=== PATIENT | female | born 1975 | race Caucasian/White ===

== ENCOUNTER → 2019-06-24 09:41 | Outpatient (CLI) | payer OTHER, SELFPAY ==
[2019-06-24 10:02] LABS: Add Manual Diff / Slide Review NO; Basophils Absolute Auto 0 /uL (0-100); Basophils Percent Auto 0.5 % (0-2); Eosinophils Absolute Auto 200 /uL (0-450); Eosinophils Percent Auto 3.2 % (2-4); Hematocrit 39.3 % (36-46); Lymphocytes Absolute Auto 1300 /uL (1100-4500); Lymphocytes Percent Auto 18.7 % (25-40); Mean Corpuscular HGB Conc 33.2 % (30-36); Mean Corpuscular Hemoglobin 29.7 PG (26-34); Mean Corpuscular Volume 89.6 fL (80-100); Monocytes Absolute Auto 500 /uL (0-900); Monocytes Percent Auto 8.2 % (3-14); Neutrophils Absolute Auto 4700 /uL (1500-7000); Neutrophils Percent Auto 69.4 % (50-75); Platelet Count 235 X10^3/uL (150-400); Red Blood Cell Count 4.38 X10^6/uL (4.0-5.2); Red Cell Distribution Width 13.1 % (11.6-14.8); White Blood Cell Count 6.7 X10^3/uL (4.5-11.0)
[2019-06-24 10:17] LABS: Alanine Aminotransferase 26 IU/L (<35); Albumin 4.2 g/dL (3.5-5.0); Albumin Globulin Ratio 1.3 (1.0-2.8); Alkaline Phosphatase 96 U/L (38-126); Aspartate Aminotransferase 21 IU/L (14-36); BUN Creatinine Ratio 13.3 (6-22); Bilirubin Total 1.2 mg/dL (0.2-1.3); Blood Urea Nitrogen 8 mg/dL (7-17); Calcium 9.3 mg/dL (8.4-10.2); Carbon Dioxide 26 mmol/L (22-32); Chloride 104 mmol/L (98-107); Cholesterol 154 mg/dL (140-199); Estimated Glomerular Filt Rate > 60.0 mL/min (>60); Globulin 3.2 g/dL (1.7-4.1); Glucose 108 mg/dL (70-100); HDL Cholesterol 45 mg/dL (40-60); HEMOLYSIS < 15 (0-50); LDL Cholesterol Calculated 96 mg/dL (<100); Potassium 4.1 mmol/L (3.4-5.1); Sodium 141 mmol/L (137-145); Total Protein 7.4 g/dL (6.3-8.2); Triglycerides 63 mg/dL (35-150)
[2019-06-24 10:46] LABS: Free T3, Triiodothyronine Free 3.65 pg/mL (2.77-5.27); Free T4, Direct Thyroxine 1.16 ng/dL (0.78-2.19)
[2019-06-24 11:00] LABS: Thyroid Stimulating Hormone 1.22 uIU/mL (0.47-4.68)
== END ==
PROVIDERS: PCP Family Medicine; Referring Provider Family Medicine; Visit Provider Family Medicine
DX: E66.9 Obesity, unspecified (principal); R53.83 Other fatigue; Z83.3 Family history of diabetes mellitus
CPT/HCPCS: 36415; 80053; 80061; 84439; 84443; 84481; 85025

== ENCOUNTER → 2020-03-21 | Outpatient (CLI) | payer OTHER, SELFPAY | PROVIDERS: PCP Social Worker Clinical; Referring Provider Internal Medicine; Visit Provider Internal Medicine | DX: Z23 Encounter for immunization (principal) | CPT/HCPCS: 90471; 90686 ==

== ENCOUNTER → 2020-05-15 09:33 | Outpatient (CLI) | payer OTHER, SELFPAY ==
[2020-05-15] MEDS: COVID-19 VACC(MODERNA-1)/PF 100 MCG/0.5 ML VIAL IM (09:36)
== END ==
PROVIDERS: PCP Social Worker Clinical; Visit Provider Internal Medicine
DX: Z23 Encounter for immunization (principal)
CPT/HCPCS: 0011A; 91301

== ENCOUNTER → 2020-06-14 09:17 | Outpatient (CLI) | payer OTHER, SELFPAY ==
[2020-06-14] MEDS: COVID-19 VACC #2, MRNA(MOD) 100 MCG/0.5 ML VIAL IM (09:22)
== END ==
PROVIDERS: Visit Provider Internal Medicine
DX: Z23 Encounter for immunization (principal)
CPT/HCPCS: 0012A; 91301

== ENCOUNTER → 2021-03-21 10:03 | Outpatient (CLI) | payer OTHER, SELFPAY ==
[2021-03-21 10:42] LABS: Add Manual Diff / Slide Review NO; Basophils Absolute Auto 0 /uL (0-100); Basophils Percent Auto 0.7 % (0-2); Eosinophils Absolute Auto 200 /uL (0-450); Eosinophils Percent Auto 2.3 % (2-4); Lymphocytes Absolute Auto 2200 /uL (1100-4500); Lymphocytes Percent Auto 30.9 % (25-40); Mean Corpuscular HGB Conc 33.3 % (30-36); Mean Corpuscular Hemoglobin 29.1 PG (26-34); Mean Corpuscular Volume 87.4 fL (80-100); Monocytes Absolute Auto 400 /uL (0-900); Neutrophils Absolute Auto 4400 /uL (1500-7000); Neutrophils Percent Auto 60.1 % (50-75); Platelet Count 301 X10^3/uL (150-400); Red Blood Cell Count 4.47 X10^6/uL (4.0-5.2); Red Cell Distribution Width 13.6 % (11.6-14.8); White Blood Cell Count 7.2 X10^3/uL (4.5-11.0)
[2021-03-21 12:10] LABS: Alanine Aminotransferase 46 IU/L (<35); Albumin 4.4 g/dL (3.5-5.0); Albumin Globulin Ratio 1.5 (1.0-2.8); Alkaline Phosphatase 98 U/L (38-126); Aspartate Aminotransferase 30 IU/L (14-36); BUN Creatinine Ratio 19.7 (6-22); Blood Urea Nitrogen 13 mg/dL (7-17); Calcium 9.5 mg/dL (8.4-10.2); Carbon Dioxide 27 mmol/L (22-32); Chloride 103 mmol/L (98-107); Cholesterol 189 mg/dL (140-199); Estimated Glomerular Filt Rate > 60.0 mL/min (>60); Glucose 96 mg/dL (70-100); HDL Cholesterol 57 mg/dL (40-60); HEMOLYSIS < 15 (0-50); LDL Cholesterol Calculated 118 mg/dL (<100); Potassium 4.7 mmol/L (3.4-5.1); Sodium 138 mmol/L (137-145); Total Protein 7.4 g/dL (6.3-8.2); Triglycerides 68 mg/dL (35-150)
== END ==
PROVIDERS: PCP Family Medicine; Referring Provider Family Medicine; Visit Provider Family Medicine
DX: R73.03 Prediabetes (principal); D64.9 Anemia, unspecified; E66.9 Obesity, unspecified; L65.9 Nonscarring hair loss, unspecified
CPT/HCPCS: 36415; 80053; 80061; 84443; 85025

== ENCOUNTER → 2021-04-24 15:06 | Outpatient (CLI) | payer OTHER, SELFPAY ==
[2021-04-24 15:53] LABS: COVID19 -Nasal RAPID Negative (Negative)
== END ==
PROVIDERS: PCP Family Medicine; Referring Provider Internal Medicine; Visit Provider Internal Medicine
DX: Z20.822 Contact with and (suspected) exposure to COVID-19 (principal)
CPT/HCPCS: 87635; C9803

== ENCOUNTER → 2021-04-25 06:44 | Outpatient (CLI) | payer OTHER, SELFPAY ==
--- NOTE | 2021-04-30 10:07 | PM.PFT.1 ---
Pulmonary Function Test Referral & Results Date Patient Seen: 04/25/21 Requesting provider: Sara Stanley Results: The spirometry demonstrates an FVC of 3.16 L which is 93% of predicted. The FEV1 was measured at 2.59 L which is 95% of predicted. The FEV1/FVC ratio was 82 which is 101% of predicted. Following the administration of bronchodilator there was a 10% improvement in FEV1 and a 27% improvement in FEF 25-75% Lung volumes show an SVC of 3.39 L which is 107% of predicted. The diffusing capacity was measured at 25.31 which is 117% of predicted. The maximum voluntary ventilation was minimally reduced Interpretation: This study demonstrates normal spirometry and diffusing capacity There may be a minimal reduction in maximum voluntary ventilation which in the absence of any abnormalities of spirometry might suggest the presence of neuromuscular disease Clinical correlation suggested
== END ==
PROVIDERS: PCP Family Medicine; Referring Provider Family Medicine; Visit Provider Family Medicine
DX: J45.20 Mild intermittent asthma, uncomplicated (principal)
CPT/HCPCS: 94060; 94726; 94729

== ENCOUNTER → 2021-07-02 13:52 | Outpatient (CLI) | payer OTHER, SELFPAY | PROVIDERS: PCP Family Medicine; Visit Provider Physician Assistant | DX: R30.0 Dysuria (principal) | CPT/HCPCS: 87077; 87086; 87186 ==

== ENCOUNTER → 2021-07-10 08:11 | Outpatient (CLI) | payer OTHER, SELFPAY | PROVIDERS: PCP Family Medicine; Visit Provider Physician Assistant | DX: R30.0 Dysuria (principal) | CPT/HCPCS: 87077; 87086; 87186 ==

== ENCOUNTER → 2021-10-22 08:59 | Outpatient (CLI) | payer OTHER, SELFPAY ==
[2021-10-22 11:07] LABS: COVID19 -Nasal RAPID Negative (Negative)
== END ==
PROVIDERS: PCP Pediatrics; Visit Provider Surgery
DX: Z20.822 Contact with and (suspected) exposure to COVID-19 (principal); Z01.812 Encounter for preprocedural laboratory examination
CPT/HCPCS: 87635; C9803

== ENCOUNTER 2021-10-23 13:23 | Day surgery (SDC) | payer OTHER, SELFPAY ==
--- NOTE | 2021-10-23 | PATH_ITS ---
[facility] Accession Number: [id number] . 01 Material submitted: . PART A: duodenum - DUODENUM PART B: stomach - ANTRUM PART C: colon - DESCENDING POLYP PART D: rectum - RECTAL POLYP . 01 Clinical history: . SDC HEMORRHAGE OF ANUS AND RECTUM GASTRO-ESOPHAGEAL REFLUX DISEASE WITH ESOPHAGITIS . 01 Diagnosis: A. Duodenum, Biopsy: Duodenal mucosa with no diagnostic abnormality. Negative for active inflammation, features of sprue, dysplasia, or malignancy. . B. Antrum, Biopsy: Gastric antral mucosa with mild chronic inflammation. Negative for Helicobacter organisms by immunohistochemistry. Negative for intestinal metaplasia. Negative for dysplasia or malignancy. . C. Descending Colon, Polyp, Biopsy: Tubular adenoma. . D. Rectal Polyp, Biopsy: Hyperplastic polyp. [facility] 10/29/2021 1246 Local . 01 Electronically signed: . Jesus Roque MD, PhD, Pathologist NPI- [id number] . 01 Gross description: . Part A: DUODENUM: Received in formalin are 2 fragment(s) of tello, soft tissue measuring 0.3 x 0.3 x 0.2 cm to 0.3 x 0.3 x 0.3 cm submitted entirely in 1 cassette(s) Part B: ANTRUM: Received in formalin are 3 fragment(s) of tello, soft tissue measuring 0.1 x 0.1 x 0.1 cm to 0.4 x 0.1 x 0.1 cm submitted entirely in 1 cassette(s) Part C: DESCENDING POLYP: Received in formalin is 1 fragment(s) of telol, soft tissue measuring 0.3 x 0.2 x 0.2 cm submitted entirely in 1 cassette(s) Part D: RECTAL POLYP: Received in formalin is 1 fragment(s) of tello, soft tissue measuring 0.3 x 0.3 x 0.3 cm submitted entirely in 1 cassette(s) /[facility]JI 10/24/[id number] Local . 01 Microscopic: . B. An immunohistochemical stain was performed to evaluate for Helicobacter organisms and is negative. The control stain showed appropriate reactivity. . * This test was developed and its performance characteristics determined by [facility]. It has not been cleared or approved by the U.S. Food and Drug Administration. The FDA has determined that such clearance or approval is not necessary. This test is used for clinical purposes. It should not be regarded as investigational or for research. . 01 Pathologist provided ICD-10: K29.70, D12.4, K62.1 . 01 CPT . 381642, 923529, 199196, 661450, B30181 Specimen Comment: A courtesy copy of this report has been sent to [phone] Performed at: 01 [facility] [address] [place] [address] [address] [facility] [place], [place], [place] [id number] MD Jama Rodríguez MD Phone: [phone]
[2021-10-23 13:55] VITALS: BMI 47.1
[2021-10-23 14:05] VITALS: BP 139/86; PULSE 74; RESP 20; TEMP 36.2; O2SAT 100
[2021-10-23] MEDS: LACTATED RINGERS 1,000 ML 42 ML IV (14:21)
--- NOTE | 2021-10-23 15:02 | PM.HP.1 ---
History of Present Illness History of Present Illness Date Patient Seen: 10/23/21 Time Patient Seen: 15:02 Chief complaint: SDC Narrative: 46-year-old woman who is suffering from multiple chronic GI complaints. See the office visit note from September for details. Patient History Medical History (Updated 10/23/21 @ 07:33 by Benigno Buitrago MD) Acute cholecystitis Anemia Asthma (~1989) Biliary colic Chicken pox (~1982) Choledocholithiasis Cholelithiasis Cold sore Eczema (~1981) Family history of diabetes mellitus Fractures (~2012) Hemorrhoids Prediabetes Recurrent sinusitis (~1988) Seasonal allergies (~1976) Well woman exam Surgical History Anesthesia History of ERCP (~2015) History of removal of skin mole (~10/1983) History of third molar tooth extraction (~08/1991) S/P left knee arthroscopy (~2014) Status post laparoscopic cholecystectomy (~11/2015) Status post tubal ligation (07/17/16) Family & Social History Family History Grandfather Cancer Diabetes mellitus Leukemia Grandmother Heart disease Stroke Grandfather Heart disease Hypertension Grandmother Hypertension Dementia Father Hypertension Mother Diabetes mellitus Hypertension Social History: household members spouse,children Tobacco & Substance use: Smoking Status Never smoker alcohol intake current alcohol intake frequency holiday/special occasion Substance Use Type does not use Meds Home Medications and Allergies Home Medications Medication Instructions Recorded Confirmed Type cetirizine 5 mg-pseudoephedrine ER 1 tab PO Q12H 04/15/18 10/23/21 History 120 mg tablet,extended release,12hr (Zyrtec-D) albuterol sulfate 90 mcg/actuation 2 puff inhalation Q4HP PRN 08/21/19 10/23/21 Rx aerosol inhaler (Ventolin HFA) shortness of breath or wheezing #2 ea methylphenidate HCl 20 mg tablet 60 mg PO DAILY #90 tabs 07/02/21 10/23/21 Rx Amberen PO 10/21/21 History multivitamin 5 ml PO DAILY 10/21/21 10/23/21 History valacyclovir 1 gram tablet 1,000 mg PO DAILY PRN Cold Sores 10/23/21 10/23/21 History (Valtrex) Allergies Allergy/AdvReac Type Severity Reaction Status Date / Time Sulfa (Sulfonamide AdvReac Mild MIGRAINES Verified 10/23/21 14:32 Antibiotics) Exam Vital Signs (past 8 hours): - 10/23/21 14:05 10/23/21 14:06 Temperature 97.2 F L Pulse Rate 74 Respiratory Rate 20 Blood Pressure 139/86 Pulse Oximetry 100 Oxygen Delivery Method Room Air Room Air Oxygen Delivery Method Room Air Const General: No acute distress Resp Effort & Inspection: normal respiratory effort GI Palpation: soft Assessment & Plan Assessment and plan (1) Rectal bleeding: Status: Acute Plan We will proceed with upper and lower endoscopy. She understands the risks and would like to proceed. COVID-19 COVID-19 status: Negative Result date/Date tested (Pos, Neg/Pending): 10/22/21 Time Spent With Patient Critical Care time: I spent a total of [] minutes of critical care time on this patient's care today; this time is exclusive of procedural time.
[2021-10-23] MEDS: LIDOCAINE 4% SOLN 50 ML 20 ML TOP (15:09)
[2021-10-23] MEDS: fentaNYL 250 MCG/5 ML INJ IV (15:30)
[2021-10-23] MEDS: MIDAZOLAM 5 MG/5 ML VIAL 13 MG IV (15:30)
--- NOTE | 2021-10-23 15:44 | PM.OP.EC ---
Operative Date/Time/Diagnoses Date of procedure: 10/23/21 Time of procedure: 15:44 Pre-op diagnosis: Rectal bleeding Post-op diagnosis: same Procedure & Clinicians Study performed: EGD and colonoscopy Same procedure as scheduled: Yes Surgeon: Benigno Cordero Procedure Notes Procedure in detail: Surgeon: Benigno Cordero MD Procedure in detail: A timeout was performed. A bite blocked was placed and monitors were attached to the patient. The patient was positioned in a left lateral decubitus position. Sedation was administered with Versed and fentanyl. Once the patient was sedated the endoscope was inserted through the bite block and passed through the esophagus and stomach and into the duodenum. No abnormalities were noted. Random biopsies were taken from the duodenum and antrum. The endoscope was retroflexed and no abnormalities were seen. The endoscope was straightned and withdrawn into the esophagus. No abnormalities were seen. Findings: Normal upper scope Next we repositioned the patient for a colonoscopy. A digital rectal exam was performed and no abnormality was noted. The colonoscope was inserted and advanced to the cecum. The appendiceal orifice was identified and photographed. The scope was slowly withdrawn over greater than 6 minutes. There was a small 5 mm polyp in the descending colon and a small 5 mm polyp rectum removed with cold forceps. The scope was retroflexed in the rectum and mild internal hemorrhoids were noted. The scope was straightened and withdrawn. Findings: 5 mm polyp in the descending colon and follow up mm polyp rectum EBL: 5 mL Scope withdrawal time: 9 Sedation minutes: 30 Post-procedure Recommendations: Will call with biopsy results Disposition: PACU
[2021-10-23 15:46] VITALS: BP 130/76; PULSE 84; RESP 13; TEMP 36.3; O2SAT 100
[2021-10-23 15:51] VITALS: BP 133/92; PULSE 81; RESP 14; TEMP 36.7; O2SAT 100
[2021-10-23 15:57] VITALS: BP 130/83; PULSE 75; RESP 15; TEMP 36.7; O2SAT 100
[2021-10-23 16:01] VITALS: BP 130/76; PULSE 83; RESP 17; TEMP 36.7; O2SAT 100
== END 2021-10-23 16:11 | disposition home or self-care (01) ==
PROVIDERS: PCP Pediatrics; Referring Provider Surgery; Visit Provider Surgery
PROC: 0DJD8ZZ Inspection of Lower Intestinal Tract, Via Natural or Artificial Opening Endoscopic (ICD-10-PCS; CPT 45378; principal; 2021-10-23 14:30)
PROC: 0DJ08ZZ Inspection of Upper Intestinal Tract, Via Natural or Artificial Opening Endoscopic (ICD-10-PCS; CPT 43235; 2021-10-23 14:30)
DX: D12.4 Benign neoplasm of descending colon (principal); K62.5 Hemorrhage of anus and rectum; K62.1 Rectal polyp; K29.50 Unspecified chronic gastritis without bleeding
CPT/HCPCS: 45380; 43239; 99152; 99153; J2250; J3010

== ENCOUNTER → 2023-05-19 07:37 | Outpatient (CLI) | payer OTHER, SELFPAY ==
[2023-05-19 08:28] LABS: Alanine Aminotransferase 53 IU/L (<35); Albumin 4.3 g/dL (3.5-5.0); Albumin Globulin Ratio 1.2 (1.0-2.8); Alkaline Phosphatase 111 U/L (38-126); Aspartate Aminotransferase 35 IU/L (14-36); BUN Creatinine Ratio 23.9 (6-22); Bilirubin Total 1.1 mg/dL (0.2-1.3); Blood Urea Nitrogen 16 mg/dL (7-17); Calcium 9.3 mg/dL (8.4-10.2); Carbon Dioxide 24 mmol/L (22-32); Chloride 105 mmol/L (98-107); Cholesterol 179 mg/dL (140-199); Estimated Glomerular Filt Rate > 60 mL/min (>60); Globulin 3.5 g/dL (1.7-4.1); Glucose 111 mg/dL (70-100); HDL Cholesterol 50 mg/dL (40-60); HEMOLYSIS < 15 (0-50); LDL Cholesterol Calculated 115 mg/dL (<100); Potassium 4.2 mmol/L (3.4-5.1); Sodium 140 mmol/L (137-145); Total Protein 7.8 g/dL (6.3-8.2); Triglycerides 69 mg/dL (35-150)
[2023-05-19 08:31] LABS: High Sensitivity CRP - Cardiac 10.7 mg/L (1.0-3.0)
[2023-05-19 08:47] LABS: Vitamin D 25 Hydroxy (D3) 27.2 ng/mL (30.0-100.0)
[2023-05-19 08:56] LABS: Thyroid Stimulating Hormone 1.83 uIU/mL (0.47-4.68)
[2023-05-23 17:17] LABS: Percent Free Testosterone 1.86 % (0.50-2.80); Testosterone Free 1.08 ng/dL (0.10-0.85); Testosterone Total 58.1 ng/dL (.)
[2023-05-26 05:52] LABS: Estradiol 30.3 pg/mL (.); Estriol,Serum <0.1 ng/mL (.); Estrone,Serum 63 pg/mL (.)
== END ==
PROVIDERS: PCP Family Medicine; Referring Provider Family Medicine; Visit Provider Family Medicine
DX: N95.1 Menopausal and female climacteric states (principal); R73.03 Prediabetes; R53.83 Other fatigue; Z68.41 Body mass index [BMI] 40.0-44.9, adult; Z83.2 Family history of diseases of the blood and blood-forming organs and certain disorders involving the immune mechanism; E78.5 Hyperlipidemia, unspecified; D64.9 Anemia, unspecified; E55.9 Vitamin D deficiency, unspecified
CPT/HCPCS: 36415; 80053; 80061; 82306; 82670; 82677; 82679; 84402; 84403; 84443; 86140

== ENCOUNTER → 2023-12-17 07:40 | Outpatient (CLI) | payer OTHER, SELFPAY ==
[2023-12-17 08:37] LABS: High Sensitivity CRP - Cardiac 8.9 mg/L (1.0-3.0)
[2023-12-17 08:55] LABS: Vitamin D 25 Hydroxy (D3) 73.3 ng/mL (30.0-100.0)
[2023-12-21 10:09] LABS: Testosterone Free 0.45 ng/dL (0.10-0.85); Testosterone Total 24.8 ng/dL (.)
[2023-12-23 13:36] LABS: Estradiol 32.7 pg/mL (.); Estriol,Serum <0.1 ng/mL (.); Estrone,Serum 104 pg/mL (.)
== END ==
PROVIDERS: PCP Family Medicine; Referring Provider Family Medicine; Visit Provider Family Medicine
DX: N95.1 Menopausal and female climacteric states (principal); E56.9 Vitamin deficiency, unspecified; Z79.890 Hormone replacement therapy
CPT/HCPCS: 36415; 82306; 82670; 82677; 82679; 84402; 84403; 86140

== ENCOUNTER → 2024-02-18 15:24 | Outpatient (CLI) | payer OTHER, SELFPAY | PROVIDERS: PCP Family Medicine; Visit Provider Registered Nurse | DX: R30.0 Dysuria (principal) | CPT/HCPCS: 87077; 87086; 87186 ==

== ENCOUNTER → 2024-05-26 07:03 | Outpatient (CLI) | payer OTHER, SELFPAY ==
[2024-05-26 08:07] LABS: Cholesterol 166 mg/dL (140-199); HDL Cholesterol 51 mg/dL (40-60); LDL Cholesterol Calculated 100 mg/dL (<100); Triglycerides 76 mg/dL (35-150)
[2024-05-26 10:31] LABS: Vitamin D 25 Hydroxy (D3) 73.5 ng/mL (30.0-100.0)
== END ==
PROVIDERS: PCP Family Medicine; Referring Provider Family Medicine; Visit Provider Family Medicine
DX: Z51.81 Encounter for therapeutic drug level monitoring (principal); Z79.890 Hormone replacement therapy
CPT/HCPCS: 36415; 80061; 82306; 82627; 82670; 84402; 84403

== ENCOUNTER → 2025-05-02 07:58 | Outpatient (CLI) | payer OTHER, SELFPAY ==
--- NOTE | 2025-05-02 07:59 | DI.MG.S_ITS ---
MM screening mammo BI: 05/02/2025. BI-RADS: 1 CLINICAL: 49-year old female for bilateral screening mammogram. Tyrer-Cuzick lifetime risk of 9.4%. No personal or first-degree family history of breast cancer. PRIOR EXAMS: None. This is a baseline mammogram. MAMMOGRAPHY TECHNIQUE: 2D and 3D (tomosynthesis) digital mammographic views obtained, with additional images as needed for full coverage. Current study was also evaluated with a Computer Aided Detection (CAD) system. DENSITY B. There are scattered areas of fibroglandular density. MAMMOGRAPHY FINDINGS Bilateral: No suspicious mass, asymmetry, microcalcification, or other abnormality seen. IMPRESSION: * No evidence of malignancy. RECOMMENDATIONS Bilateral * Annual screening mammography. OVERALL ASSESSMENT CATEGORY BI-RADS-1: Negative. [employer] recommends annual screening mammography beginning at age 40 for women with average risk of breast cancer. ELECTRONICALLY SIGNED: Xin Freeman M.D. on 05/02/2025 at 12:29:57 PM PT Interpreting Station ID: [id number]
== END ==
LOC: MAMMO 07:59
PROVIDERS: PCP Family Medicine; Referring Provider Family Medicine; Visit Provider Family Medicine
DX: Z12.31 Encounter for screening mammogram for malignant neoplasm of breast (principal)
CPT/HCPCS: 77063; 77067